=== PATIENT | male | born 1950 | race Caucasian/White ===

== ENCOUNTER 2017-10-17 11:58 | Outpatient (CLI) | payer MEDICARE, OTHER | END 2017-10-17 11:59 | disposition critical access hospital (66) | LOC: EMS 11:58 | PROVIDERS: ATTEND Surgery | DX: R07.9 Chest pain, unspecified (principal) | CPT/HCPCS: A0425; A0427 ==

== ENCOUNTER 2017-10-17 12:10 | Emergency (ER) | payer MEDICARE, OTHER ==
[2017-10-17 12:33] LABS: BASOPHILS % (AUTO) 0.6 %; EOSINOPHILS # (AUTO) 0.1 10^3/uL (0.0-0.7); EOSINOPHILS % (AUTO) 1.6 %; HGB - HEMOGLOBIN 12.6 g/dL (14.0-18.0); LYMPHOCYTES % (AUTO) 22.6 %; MEAN CORPUSCULAR HEMOGLOBIN 32.8 pg (27.0-31.0); MEAN CORPUSCULAR HGB CONC 33.8 g/dL (32.0-36.0); MEAN CORPUSCULAR VOLUME 96.9 fL (80.0-94.0); MEAN PLATELET VOLUME 9.1 fL (7.4-11.4); MONOCYTES # (AUTO) 0.3 10^3/uL (0.0-1.0); MONOCYTES % (AUTO) 6.9 %; NEUTROPHILS % (AUTO) 68.3 %; PLT - PLATELET COUNT 104 10^3/uL (130-450); RED BLOOD COUNT 3.85 10^6/uL (4.70-6.10); RED CELL DISTRIBUTION WIDTH 15.8 % (12.0-15.0); WHITE BLOOD COUNT 4.5 x10^3/uL (4.8-10.8)
[2017-10-17 12:47] LABS: ALBUMIN 3.1 g/dL (3.2-5.5); ALBUMIN/GLOBULIN RATIO 0.7 (1.0-2.2); BILIRUBIN,TOTAL 2.4 mg/dL (0.2-1.0); CALCIUM 9.2 mg/dL (8.5-10.3); CREATININE 1.3 mg/dL (0.6-1.2); TOTAL PROTEIN 7.4 g/dL (6.7-8.2)
--- NOTE | 2017-10-17 12:54 | ED Physician Documentation ---
PD HPI CHEST PAIN - Stated complaint Stated Complaint: CHEST PAIN - Chief complaint Chief Complaint: Cardiac - History obtained from History obtained from: Patient, EMS - History of Present Illness Timing - onset: Today (This is a 67-year-old gent with history of hepatitis C who developed severe 10 out of 10 sharp substernal nonradiating chest pain around 1115 well walking after working on a project. He was short of breath and sweaty with it. He was administered nitroglycerin and aspirin in route and the pain is now about a 3. Other pertinent history to note, he had a similar episode about a month ago which lasted for an hour, he saw his doctor after that , but he has not had a stress test and maybe 15 years. He has no personal history of coronary disease but he does have hypertension, his mom of what sounds like aortic dissection and his brother had a four-vessel bypass and he is only 1 year older than the patient.) Review of Systems Ten Systems: 10 systems reviewed and negative Constitutional: reports: Sweats. denies: Fever, Chills Cardiac: reports: Chest pain / pressure. denies: Palpitations Respiratory: reports: Dyspnea. denies: Cough GI: denies: Abdominal Pain, Nausea, Vomiting PD PAST MEDICAL HISTORY - Past Medical History Past Medical History: Yes Cardiovascular: Hypertension Other Past Medical History: Hep C positive. - Past Surgical History Past Surgical History: Yes Ortho: Rotator cuff repair - Allergies Allergies/Adverse Reactions: Allergies Allergy/AdvReac Type Severity Reaction Status Date / Time No Known Drug Allergies Allergy Verified 10/17/17 12:18 - Social History Does the pt smoke?: No Smoking Status: Former smoker Does the pt drink ETOH?: No Does the pt have substance abuse?: No - Family History Family history: reports: CAD, Aortic dissection - Immunizations Immunizations are current?: Yes - POLST Patient has POLST: No PD ED PE NORMAL - Vitals Vital signs reviewed: Yes - General General: Alert and oriented X 3, No acute distress - HEENT HEENT: PERRL, EOMI - Neck Neck: Supple, no meningeal sign, No bony TTP - Cardiac Cardiac: RRR, No murmur - Respiratory Respiratory: No respiratory distress, Clear bilaterally - Abdomen Abdomen: Normal bowel sounds, Soft, Non tender - Back Back: No CVA TTP, No spinal TTP - Derm Derm: Normal color, Warm and dry - Extremities Extremities: No edema, No calf tenderness / cord - Neuro Neuro: Alert and oriented X 3, Normal speech Results - Vitals Vitals: Vital Signs - 24 hr 10/17/17 10/17/17 12:13 14:28 Temperature 36.5 C Heart Rate 87 82 Respiratory 20 14 Rate Blood Pressure 131/57 H 114/64 O2 Saturation 96 95 Oxygen O2 Source Room air - EKG (time done) 1218 Rate: Rate (enter#) (88) Rhythm: NSR (With PACs and PVCs, he says this is a pre-existing phenomenon.) [place]: Normal Intervals: Normal [place] QRS: Normal Ischemia: Normal ST segments Computer interpretation: Agree with computer - Labs Labs: Laboratory Tests 10/17/17 10/17/17 10/17/17 12:29 12:29 12:29 WBC 4.5 L RBC 3.85 L Hgb 12.6 L Hct 37.3 L MCV 96.9 H MCH 32.8 H MCHC 33.8 RDW 15.8 H Plt Count 104 L MPV 9.1 Neut # (Auto) 3.0 Lymph # (Auto) 1.0 L Bullock # (Auto) 0.3 Eos # (Auto) 0.1 Baso # (Auto) 0.0 Absolute Nucleated RBC 0.00 Nucleated RBC % 0.0 D-Dimer Sodium 133 L Potassium 3.0 L Chloride 103 Carbon Dioxide 21 Anion Gap 9.0 BUN 24 H Creatinine 1.3 H Estimated GFR (MDRD) 55 L Glucose 117 H Calcium 9.2 Total Bilirubin 2.4 H AST 247 H ALT 173 H Alkaline Phosphatase 90 Troponin I < 0.04 Total Protein 7.4 Albumin 3.1 L Globulin 4.3 H Albumin/Globulin Ratio 0.7 L Lipase 61 H 10/17/17 10/17/17 12:29 14:00 WBC RBC Hgb Hct MCV MCH MCHC RDW Plt Count MPV Neut # (Auto) Lymph # (Auto) Bullock # (Auto) Eos # (Auto) Baso # (Auto) Absolute Nucleated RBC Nucleated RBC % D-Dimer 435.2 H Sodium Potassium Chloride Carbon Dioxide Anion Gap BUN Creatinine Estimated GFR (MDRD) Glucose Calcium Total Bilirubin AST ALT Alkaline Phosphatase Troponin I < 0.04 Total Protein Albumin Globulin Albumin/Globulin Ratio Lipase - Rads (name of study) CT PA Radiology: EMP read contemporaneously (Coronary artery calcifications with a 2.4 cm atrial mass, likely myxoma.) PD MEDICAL DECISION MAKING - ED course ED course: This is a 67-year-old gentleman with multiple risk factors for coronary disease who presents after an episode of what sounds like typical angina, he also has a family history of aortic dissection. He has chronic hepatitis C. His EKG is nonischemic nonischemic and 2 troponins were done in the department and negative. 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 Case was discussed by phone with Dr. Lopez here who felt he should be transferred to a facility capable of interventional cardiology and with cardiothoracic surgery. His daughter is a nurse practitioner at [facility] and would like him to be transferred there and they were called for consultation at [address] Tang, cardiology, who accepts in [place]. Mark king. No other ACS meds for now. - Sepsis Event Vital Signs: Vital Signs - 24 hr 10/17/17 10/17/17 12:13 14:28 Temperature 36.5 C Heart Rate 87 82 Respiratory 20 14 Rate Blood Pressure 131/57 H 114/64 O2 Saturation 96 95 Oxygen O2 Source Room air Departure - Departure Disposition: 02 Transfer Acute Care Hosp Clinical Impression: Atrial myxoma Chest pain Qualifiers: Chest pain type: chest pain due to myocardial ischemia Ischemic chest pain type : unstable angina pectoris Qualified Code(s): I20.0 - Unstable angina Condition: Serious
[2017-10-17] MEDS ORDERED: IOPAMIDOL-300 100 ML VIAL ONE (14:03)
--- NOTE | 2017-10-17 14:39 | CT Report ---
Procedure Date: 10/17/2017 Accession Number: [id number] / [id number] Procedure: CT - Chest Angio (PE) CPT Code: FULL RESULT: EXAM: CT ANGIOGRAM CHEST EXAM DATE: 10/17/2017 02:16 PM. CLINICAL HISTORY: Chest pain, high dimer. COMPARISON: None. TECHNIQUE: Routine helical imaging was performed through the chest in the pulmonary arterial phase. IV Contrast: ISOVUE 300 80mL. Reconstructions: Coronal 3-D MIP reconstructions.Sagittal and coronal. In accordance with CT protocol optimization, one or more of the following dose reduction techniques were utilized for this exam: automated exposure control, adjustment of mA and/or KV based on patient size, or use of iterative reconstructive technique. FINDINGS: Pulmonary Arteries: Diagnostic quality: Adequate through the segmental arteries. No evidence for acute or chronic pulmonary emboli. Lungs/Pleura: Paraseptal and centrilobular emphysema is present in the upper lobes. No pleural effusions. No endobronchial or endotracheal lesion. Mediastinum: Imaged portions of the thyroid are grossly unremarkable. Thoracic aorta and main pulmonary artery are normal caliber. Within the left atrium likely attached to the interatrial septum is a 2.4 cm mass measuring soft tissue density. There are three-vessel coronary artery calcifications. Heart size is within normal limits. No pericardial effusion. Lymph Nodes: No mediastinal, hilar, or axillary adenopathy. Bones: No suspicious osseous lesions. Visualized chest wall is grossly unremarkable. Partially Imaged Upper Abdomen: No acute abnormalities. IMPRESSION: 2.4 cm left atrial mass likely pedunculated and attached to the interatrial septum. Primary diagnostic consideration is a myxoma, or possibly lipoma with pseudo-enhancement. Cardiothoracic surgical consultation is recommended given the risks of infection and embolization. If available, cardiac MRI could exclude lipoma and thrombus. No acute or chronic pulmonary embolus. Three-vessel coronary artery calcifications. Upper lobe predominant centrilobular and paraseptal emphysema. RADIA
[2017-10-17] MEDS ORDERED: IOPAMIDOL-300 100 ML VIAL IVP ONE (15:52)
[2017-10-17 16:17] VITALS: BP 102/67
--- NOTE | 2017-10-17 23:38 | XRAY Report ---
Procedure Date: 10/17/2017 Accession Number: [id number] / [id number] Procedure: XR - Chest 2 View X-Ray CPT Code: 47381 FULL RESULT: EXAM: CHEST RADIOGRAPHY EXAM DATE: 10/17/2017 01:02 PM. CLINICAL HISTORY: Chest pain, sob. COMPARISON: None. TECHNIQUE: 2 views. FINDINGS: Lungs/Pleura: No focal opacities evident. No pleural effusion. No pneumothorax. Normal volumes. Mediastinum: Heart and mediastinal contours are unremarkable. Other: None. IMPRESSION: No focal lung consolidation or pleural effusions. RADIA
== END 2017-10-17 18:29 | disposition short-term general hospital (02) ==
LOC: EDUNIT# → ED 12:10
DX: D15.1 Benign neoplasm of heart (principal); I20.0 Unstable angina; I10 Essential (primary) hypertension; Z87.891 Personal history of nicotine dependence; Z82.49 Family history of ischemic heart disease and other diseases of the circulatory system; B18.2 Chronic viral hepatitis C
CPT/HCPCS: 36415; 71046; 71275; 80053; 83690; 84484; 85025; 85379; 93005; 99284; Q9967

== ENCOUNTER 2017-10-17 17:59 | Outpatient (CLI) | payer MEDICARE, OTHER | END 2017-10-17 18:00 | disposition short-term general hospital (02) | LOC: EMS 17:59 | PROVIDERS: ATTEND Surgery | DX: I20.0 Unstable angina (principal) | CPT/HCPCS: A0170; A0425; A0428 ==